=== PATIENT | female | born 1950 | race Caucasian/White ===

== ENCOUNTER 2019-01-07 13:05 | Inpatient (IN) | payer OTHER, MEDICARE ==
[~2019-01-07] VITALS: Ht 172.7 cm; Wt 76.4 kg
[~2019-01-07 13:05] MED LIST: AMIO200T42 PO; CARV6.252 PO; FURO20TA3 PO; GLIM4TAB2 PO; GLIPERIDE PO; HYDR-3240 PO; INSU100V8 SQ; LEVO750T26 PO; LOSA1TAB25 PO; LOSA25TA2 PO; LOSA25TA25 PO; METF10002 PO; METO25TA35 PO; OXYC-302 PO; SENN1TAB8 PO; SIMV20TA3 PO; SIMV40TA3 PO; WARF2.5T32 PO; WARF3TAB PO; WARF3TAB52 PO
--- NOTE | 2019-01-07 13:31 | NUR ---
Recieved report from AMNA Perez. Assuming care of pt. First contact with pt. ZAKIN. No needs expresed at this time. Pt connected to all monitors. Family member at bedside. All safet measures in placey.
[2019-01-07] MEDS ORDERED: ALBUTEROL/IPRATROPIUM 2.5MG/0.5MG, 3 ML ONE (13:55)
--- NOTE | 2019-01-07 13:55 | NUR ---
Pt transported to X-ray on [facility].
[2019-01-07] MEDS ORDERED: ALBUTEROL/IPRATROPIUM 2.5MG/0.5MG, 3 ML NPPB ONE (14:00)
[2019-01-07 14:19] LABS: MEAN CORPUSCULAR HEMOGLOBIN 31.5 pg (27.0-34.8); MEAN CORPUSCULAR HGB CONC 33.3 g/dL (32.4-35.8); MEAN CORPUSCULAR VOLUME 94.6 fL (80-100); MEAN PLATELET VOLUME 9.8 fL (7.4-10.4); PLATELET COUNT 150 x10^3/uL (130-400); RED CELL DISTRIBUTION WIDTH 14.9 % (9.6-15.2)
[2019-01-07 14:29] LABS: ALBUMIN 2.9 g/dL (3.4-5.0); ANION GAP 9 mmol/L (5-15); CALCIUM 8.6 mg/dL (8.5-10.1); CHLORIDE 98 mmol/L (98-107); CREATININE 2.06 mg/dL (0.55-1.02)
[2019-01-07] MEDS ORDERED: SODIUM CHLORIDE FLUSH 10ML SYR IVF ONE (14:30)
[2019-01-07] MEDS ORDERED: CEFTRIAXONE 1,000 MG in SODIUM CHLORIDE 0.9% 50 ML IVPB ONE ×2 (14:30→15:00)
[2019-01-07 14:55] LABS: BASOPHILS # (AUTO) 0.01 x10^3/uL (0-0.1); BASOPHILS % (AUTO) 0 % (0-1); EOSINOPHILS % (AUTO) 0 % (1-7); LYMPHOCYTES # (AUTO) 0.39 x10^3/uL (1-3.4); LYMPHOCYTES % (AUTO) 4 % (22-44); MD SCAN; MONOCYTES # (AUTO) 0.37 x10^3/uL (0.2-0.8); MONOCYTES % (AUTO) 3 % (2-9); NEUTROPHILS # (AUTO) 10.29 x10^3/uL (1.8-6.8); NEUTROPHILS % (AUTO) 93 % (42-75)
[2019-01-07] MEDS ORDERED: CEFTRIAXONE PMX 1GM/50ML 50 ML IVPB ONE (15:00)
--- NOTE | 2019-01-07 15:26 | NUR ---
PIV antibiotics infusing per EMAR. Pt SPO2% at 85 % on room air.
[2019-01-07] MEDS ORDERED: METF500T17 PO (16:23)
[2019-01-07] MEDS ORDERED: SODIUM CHLORIDE FLUSH 10ML SYR IVF PRN (16:30)
[2019-01-07] MEDS ORDERED: SODIUM CHLORIDE 0.9% 1,000 ML IV SCH (16:38)
[2019-01-07] MEDS: INSULIN GLARGINE 100 UNITS/ML, PEN SQ-INSULIN SCH ×2 (17:00→20:45)
[2019-01-07] MEDS ORDERED: ONDANSETRON 2MG/ML, 2ML IVPush PRN (17:00)
[2019-01-07] MEDS: INSULIN LISPRO 100 UNITS/ML, PEN SQ-INSULIN SCH ×2 (17:00→20:45)
[2019-01-07] MEDS ORDERED: hydrALAzine 20 MG/ML, 1ML IVPush PRN (17:00)
[2019-01-07] MEDS ORDERED: ACETAMINOPHEN 325 MG TABLET PO PRN (17:00)
[2019-01-07] MEDS ORDERED: POLYETHYLENE GLYCOL 17 GM PACKET PO PRN (17:00)
[2019-01-07] MEDS ORDERED: BISACODYL 10 MG SUPP PR PRN (17:00)
[2019-01-07] MEDS ORDERED: DEXTROSE 50%, 50ML SYRINGE IVPush PRN (17:00)
[2019-01-07] MEDS ORDERED: LABETALOL 5MG/ML, 20ML IVPush PRN (17:00)
[2019-01-07] MEDS ORDERED: DEXTROSE 4 GM TAB.CHEW PO PRN (17:00)
[2019-01-07] MEDS ORDERED: ONDANSETRON ODT 4 MG PO PRN (17:00)
[2019-01-07] MEDS ORDERED: GLUCAGON 1 MG IM PRN (17:00)
[2019-01-07] MEDS ORDERED: DOCUSATE 100 MG CAPSULE PO PRN (17:00)
--- NOTE | 2019-01-07 17:05 | NUR ---
Provided report to AMNA Avalos. All questions answered. Pt ready to transfer to floor from ED.
--- NOTE | 2019-01-07 17:32 | NUR ---
Pt transported to floor from ED and left with all personal belongings.
[2019-01-07 17:37] VITALS: BP 104/64
[2019-01-07 18:32] VITALS: BP 103/63
[2019-01-07 18:34] LABS: INTERNATIONAL NORMALIZED RATIO 1.53 (0.93-1.1)
[2019-01-07] MEDS ORDERED: WARFARIN 2 MG TABLET PO-COUM ONE (18:57)
[2019-01-07] MEDS: SIMVASTATIN 20 MG TABLET PO SCH (20:43)
[2019-01-07] MEDS: AZITHROMYCIN 500 MG in SODIUM CHLORIDE 0.9% 250 ML IV SCH (20:44)
[2019-01-07] MEDS: SODIUM CHLORIDE FLUSH 10ML SYR IVF SCH (20:44)
[2019-01-07 23:30] LABS: CULTURE INDICATED? YES; MICROSCOPIC INDICATED
[2019-01-08 03:01] VITALS: BP 113/69
[2019-01-08 03:24] LABS: BASOPHILS # (AUTO) 0.04 x10^3/uL (0-0.1); BASOPHILS % (AUTO) 0 % (0-1); EOSINOPHILS # (AUTO) 0.04 x10^3/uL (0-0.4); EOSINOPHILS % (AUTO) 1 % (1-7); LYMPHOCYTES # (AUTO) 1.09 x10^3/uL (1-3.4); LYMPHOCYTES % (AUTO) 13 % (22-44); MD NO; MEAN CORPUSCULAR HEMOGLOBIN 31.9 pg (27.0-34.8); MEAN CORPUSCULAR HGB CONC 33.8 g/dL (32.4-35.8); MEAN CORPUSCULAR VOLUME 94.2 fL (80-100); MEAN PLATELET VOLUME 9.5 fL (7.4-10.4); MONOCYTES % (AUTO) 7 % (2-9); NEUTROPHILS % (AUTO) 78 % (42-75); PLATELET COUNT 154 x10^3/uL (130-400); RED BLOOD COUNT 3.76 x10^6/uL (3.82-5.3); RED CELL DISTRIBUTION WIDTH 14.7 % (9.6-15.2)
[2019-01-08 03:33] LABS: INTERNATIONAL NORMALIZED RATIO 1.62 (0.93-1.1); PROTHROMBIN TIME 16.9 Seconds (9.6-11.5)
[2019-01-08 03:36] LABS: ALANINE AMINOTRANSFERASE 12 U/L (12-78); ALBUMIN 2.6 g/dL (3.4-5.0); ANION GAP 6 mmol/L (5-15); CHLORIDE 102 mmol/L (98-107); CREATININE 1.91 mg/dL (0.55-1.02)
[2019-01-08 03:38] LABS: ALKALINE PHOSPHATASE 74 U/L (45-117); BILIRUBIN,TOTAL 0.7 mg/dL (0.2-1.0); TOTAL PROTEIN 6.8 g/dL (6.4-8.2)
[2019-01-08 06:36] VITALS: BP 118/58
[2019-01-08] MEDS: GLIMEPIRIDE 4 MG TABLET PO SCH (07:44)
[2019-01-08] MEDS: AMIODARONE 200 MG TABLET PO SCH (07:44)
[2019-01-08] MEDS: INSULIN LISPRO 100 UNITS/ML, PEN SQ-INSULIN SCH ×5 (07:45→20:37)
[2019-01-08] MEDS: SODIUM CHLORIDE FLUSH 10ML SYR IVF SCH ×2 (07:45→22:09)
[2019-01-08] MEDS ORDERED: CARVEDILOL 6.25 MG TABLET PO SCH (09:00)
[2019-01-08] MEDS ORDERED: POTASSIUM CHLORIDE 20 MEQ TAB.ER.PRT PO ONE (10:30)
[2019-01-08 13:21] VITALS: BP 102/66
[2019-01-08] MEDS: CEFTRIAXONE PMX 1GM/50ML 50 ML IV SCH (14:27)
[2019-01-08] MEDS ORDERED: WARFARIN 5 MG TABLET PO-COUM ONE (18:00)
[2019-01-08] MEDS: CARVEDILOL 6.25 MG TABLET PO SCH (18:24)
[2019-01-08 20:10] VITALS: BP 132/77
[2019-01-08] MEDS ORDERED: INSULIN GLARGINE 100 UNITS/ML, PEN SQ-INSULIN SCH (21:00)
[2019-01-08] MEDS: AZITHROMYCIN 500 MG in SODIUM CHLORIDE 0.9% 250 ML IV SCH (22:09)
[2019-01-08] MEDS: SIMVASTATIN 20 MG TABLET PO SCH (22:09)
[2019-01-09 02:01] VITALS: BP 121/68
[2019-01-09 04:53] LABS: INTERNATIONAL NORMALIZED RATIO 2.15 (0.93-1.1); PROTHROMBIN TIME 22.1 Seconds (9.6-11.5)
[2019-01-09 04:58] LABS: ANION GAP 4 mmol/L (5-15); CALCIUM 7.8 mg/dL (8.5-10.1); CHLORIDE 106 mmol/L (98-107); CREATININE 1.58 mg/dL (0.55-1.02)
[2019-01-09 06:02] VITALS: BP 149/77
[2019-01-09] MEDS: CARVEDILOL 6.25 MG TABLET PO SCH ×3 (06:04→21:44)
[2019-01-09 06:45] VITALS: BP 133/81
[2019-01-09] MEDS: AMIODARONE 200 MG TABLET PO SCH (08:08)
[2019-01-09] MEDS: GLIMEPIRIDE 4 MG TABLET PO SCH (08:08)
[2019-01-09] MEDS: SODIUM CHLORIDE FLUSH 10ML SYR IVF SCH ×2 (08:09→21:44)
[2019-01-09] MEDS: INSULIN LISPRO 100 UNITS/ML, PEN SQ-INSULIN SCH ×4 (08:22→21:00)
[2019-01-09 13:05] VITALS: BP 127/82
[2019-01-09] MEDS: CEFTRIAXONE PMX 1GM/50ML 50 ML IV SCH (15:17)
[2019-01-09] MEDS ORDERED: WARFARIN 2.5 MG TABLET PO-COUM ONE (18:00)
[2019-01-09 19:50] VITALS: BP 134/86
[2019-01-09] MEDS ORDERED: INSULIN GLARGINE 100 UNITS/ML, PEN SQ-INSULIN SCH (21:00)
[2019-01-09] MEDS: SIMVASTATIN 20 MG TABLET PO SCH (21:44)
[2019-01-10 02:20] VITALS: BP 138/76
[2019-01-10 05:20] LABS: INTERNATIONAL NORMALIZED RATIO 3.18 (0.93-1.1); PROTHROMBIN TIME 32.2 Seconds (9.6-11.5)
[2019-01-10 05:24] LABS: ANION GAP 6 mmol/L (5-15); CALCIUM 8.2 mg/dL (8.5-10.1); CHLORIDE 106 mmol/L (98-107)
[2019-01-10 05:26] LABS: CREATININE 1.52 mg/dL (0.55-1.02)
[2019-01-10] MEDS: INSULIN LISPRO 100 UNITS/ML, PEN SQ-INSULIN SCH (07:30)
[2019-01-10] MEDS: AMIODARONE 200 MG TABLET PO SCH (07:31)
[2019-01-10] MEDS: GLIMEPIRIDE 4 MG TABLET PO SCH (07:31)
[2019-01-10] MEDS: CARVEDILOL 6.25 MG TABLET PO SCH (07:31)
[2019-01-10] MEDS: SODIUM CHLORIDE FLUSH 10ML SYR IVF SCH (07:32)
[2019-01-10] MEDS ORDERED: CEFD300C37 PO (08:47)
[2019-01-10] MEDS ORDERED: CARV6.252 PO (08:47)
[2019-01-10] MEDS ORDERED: INSU100I11 SQ-INSULIN (08:47)
[2019-01-10 09:14] VITALS: BP 118/74
== END 2019-01-10 10:15 | disposition home or self-care (01) | DRG 682 ==
LOC: ED 15:48 → EDIP 16:06 → 3NW 17:29 → DCLOUNGE 01-10 10:05
PROVIDERS: ADMIT Hospitalist; ATTEND Hospitalist
DX: N17.9 Acute kidney failure, unspecified (principal); J15.9 Unspecified bacterial pneumonia; J96.01 Acute respiratory failure with hypoxia; I13.0 Hypertensive heart and chronic kidney disease with heart failure and stage 1 through stage 4 chronic kidney disease, or unspecified chronic kidney disease; E87.1 Hypo-osmolality and hyponatremia; E44.0 Moderate protein-calorie malnutrition; E11.22 Type 2 diabetes mellitus with diabetic chronic kidney disease; E11.649 Type 2 diabetes mellitus with hypoglycemia without coma; E11.65 Type 2 diabetes mellitus with hyperglycemia; E78.5 Hyperlipidemia, unspecified; E87.6 Hypokalemia; I48.91 Unspecified atrial fibrillation; I50.9 Heart failure, unspecified; N18.9 Chronic kidney disease, unspecified; Z79.01 Long term (current) use of anticoagulants; Z79.4 Long term (current) use of insulin; Z83.3 Family history of diabetes mellitus; Z86.718 Personal history of other venous thrombosis and embolism; Z87.442 Personal history of urinary calculi; Z95.2 Presence of prosthetic heart valve; Z68.25 Body mass index [BMI] 25.0-25.9, adult
CPT/HCPCS: 36415; 99285; J7620; 71046; 80048; 80053; 81001; 82040; 82962; 83605; 83735; 84100; 85025; 85610; 87040; 87070; 87086; 87205; 93005; 94640; 96365; G0378; J0456; J0696; J1815; J7050